=== PATIENT | male | born 1960 | race Caucasian/White ===

== ENCOUNTER 2018-04-08 14:07 | Emergency (ER) | payer BC ==
[2018-04-08 14:11] VITALS: BP 144/102
[2018-04-08] MEDS ORDERED: Bacitracin Oint 1 GM U/D Packet TOP ONE (14:27)
[2018-04-08] MEDS ORDERED: Lidocaine 1% 30 ML SDV INJECT ONE (14:27)
--- NOTE | 2018-04-08 14:55 | EDM.PDOC ---
Scribed by Lauren Lake 04/08/18 [id number] for Kenyon Tubbs MD ED HPI GENERAL MEDICAL PROBLEM - General Chief Complaint: Laceration Stated Complaint: [id number] NEEDS STITCHES IN RIGHT HAND Time Seen by Provider: 04/08/18 14:14 Source of Information: Reports: Patient, RN, RN Notes Reviewed History Limitations: Reports: No Limitations - History of Present Illness INITIAL COMMENTS - FREE TEXT/NARRATIVE: Patient arrives from home by POV with complaint of laceration of right hand sustained while working on his mower. Denies any other injury. Last tetanus vaccine was approximately 1 year ago. Onset: Today, Sudden Location: Reports: Upper Extremity, Right Quality: Reports: Ache Severity: Mild Improves with: Reports: None Worsens with: Reports: None Associated Symptoms: Reports: No Other Symptoms Right Hand Pain Score (Numeric/FACES): 1 - Related Data Allergies Allergy/AdvReac Type Severity Reaction Status Date / Time No Known Allergies Allergy Verified 06/12/16 11:17 Home Meds: Home Meds Citalopram [Celexa] 20 mg PO DAILY 05/28/16 [History] Lisinopril 1 tab PO DAILY 05/28/16 [History] atorvaSTATin Calcium [Atorvastatin Calcium] 1 tab PO DAILY 05/28/16 [History] Past Medical History Cardiovascular History: Reports: High Cholesterol, Hypertension Respiratory History: Reports: Bronchitis, Recurrent Gastrointestinal History: Reports: None Genitourinary History: Reports: None Musculoskeletal History: Reports: 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 Neurological History: Reports: None Psychiatric History: Reports: Depression Endocrine/Metabolic History: Reports: None Hematologic History: Reports: None Immunologic History: Reports: None Oncologic (Cancer) History: Reports: None Dermatologic History: Reports: None - Infectious Disease History Infectious Disease History: Reports: Mumps - Past Surgical History Cardiovascular Surgical History: Reports: None GI Surgical History: Reports: None Social & Family History - Family History Family Medical History: Noncontributory - Living Situation & Occupation Living situation: Reports: , with Spouse Review of Systems - Review of Systems Review Of Systems: ROS reveals no pertinent complaints other than HPI. ED EXAM, GENERAL - Physical Exam Exam: See Below Exam Limited By: No Limitations General Appearance: Alert, WD/WN, No Apparent Distress Head: Atraumatic, Normocephalic Respiratory/Chest: No Respiratory Distress Extremities: Normal Range of Motion, Normal Capillary Refill, Other (Rt hand 4th /5th interdigit webspace with 2.0cm irreg. lac. to depth of subcut. tissue, no active bleeding, no FB) Neurological: Alert, Oriented, No Motor/Sensory Deficits Psychiatric: Normal Mood ED TRAUMA EXTREMITY PROCEDURES - Laceration/Wound Repair Right Hand Lac/Wound Length In cm: 2 (Rt hand 4th/5th interdigit web space) Appearance: Subcutaneous, Irregular, Clean Distal NVT: Neuro & Vascular Intact, No Tendon Injury Anesthetic Type: Local Local Anesthesia - Lidocaine (Xylocaine): 1% Plain Local Anesthetic Volume: 5cc Skin Prep: Chlorhexidine (Hibiciens), Saline Saline Irrigation (cc's): 1,000 Exploration/Debridement/Repair: Wound Explored, In a Bloodless Field, Explored to Base, Minimal Debridement, Minimally Undermined Closed With: Sutures Suture Size: 4-0 # of Sutures: 6 Suture Type: Nylon, Running Drain Placement: No Sterile Dressing Applied: Nurse Tetanus Status Addressed: Yes Complications: No Course - Vital Signs Last Recorded V/S: Last Vital Signs Temp 36.6 C 04/08/18 14:10 Pulse 95 04/08/18 14:10 Resp 17 04/08/18 14:10 BP 144/102 H 04/08/18 14:10 Pulse Ox 96 04/08/18 14:10 - Orders/Labs/Meds Meds: Medications Discontinued Medications Generic Name Dose Route Start Last Admin Trade Name Bradleyq PRN Reason Stop Dose Admin Bacitracin 1 dose 04/08/18 14:27 04/08/18 14:50 Bacitracin Oint 1 Gm TOP 04/08/18 14:28 1 dose ONETIME ONE Administration Lidocaine HCl 30 ml 04/08/18 14:27 04/08/18 14:50 Xylocaine-Mpf 1% INJECT 04/08/18 14:28 30 ml ONETIME ONE Administration Departure - Departure Time of Disposition: 14:48 Disposition: Home, Self-Care 01 Condition: Good Clinical Impression: Laceration of right hand Qualifiers: Encounter type: initial encounter Foreign body presence: without foreign body Qualified Code(s): S61.411A - Laceration without foreign body of right hand, initial encounter - Discharge Information Instructions: Laceration Care, Adult, [id number] Forms: ED Department Discharge Additional Instructions: Follow up in clinic in 7 to 10 days for suture removal. Return to ER if any signs of infection develop. I have read and agree with the documentation that has been completed regarding this visit. By signing this record, I attest that the documentation was completed in my physical presence and is an accurate record of the encounter.
== END 2018-04-08 15:08 | disposition home or self-care (01) ==
LOC: DL.ED 14:07
DX: S61.411A Laceration without foreign body of right hand, initial encounter (principal); F32.9 Major depressive disorder, single episode, unspecified; E78.00 Pure hypercholesterolemia, unspecified; I10 Essential (primary) hypertension; Z79.899 Other long term (current) drug therapy; W31.9XXA Contact with unspecified machinery, initial encounter; Y99.0 Civilian activity done for income or pay
CPT/HCPCS: 12001; 12011; 99283